=== PATIENT | female | born 1960 | race Caucasian/White ===

== ENCOUNTER 2023-12-10 12:55 | Inpatient (IN) | payer MEDICARE, SELFPAY ==
[2023-12-10] VITALS (7 sets, daily range): BP systolic 104–158; BP diastolic 43–113; PULSE 90–116; RESP 17–22; TEMP 36.7–36.9; O2SAT 94–98; BMI 23.0; BMI 24.1
--- NOTE | 2023-12-10 13:08 | XR_ITS ---
PROCEDURE INFORMATION: Exam: XR Chest Exam date and time: 12/10/2023 1:11 PM Age: 63 years old Clinical indication: Patient HX: Patient says she has a really bad cough. ; Additional info: SOA TECHNIQUE: Imaging protocol: Radiologic exam of the chest. Views: 1 view. COMPARISON: No relevant prior studies available. FINDINGS: Lungs: Opacities in both bases may represent atelectasis or pneumonia.. Hyperexpanded lung landry consistent with COPD Pleural spaces: Unremarkable. No pleural effusion. No pneumothorax. Heart/Mediastinum: Unremarkable. No cardiomegaly. Bones/joints: Unremarkable. IMPRESSION: Opacities in both bases may represent atelectasis or pneumonia..
--- NOTE | 2023-12-10 13:12 | ED_ITS ---
Discharge Plan Disposition Patient Disposition: Admitted Clinical Impressions Clinical Impression: Sepsis, Pneumonia, Acute kidney injury, Acute hyperkalemia Discharge ED Provider: Sigrid Rinaldi General Adult HPI General Chief complaint: Shortness of Breath/Dyspnea Stated complaint: Vomiting blood,cough,SOA Time Seen by Provider: 12/10/23 13:06 Mode of Arrival: Ambulatory Source of Information: Patient Limitations: No Limitations Description of Symptoms (Recalled from ER Triage Doc. by RN): shortness of breath History of Present Illness HPI narrative: This 63-year-old female who according to her daughter never goes to the doctor and therefore has no known medical problems but recently quit smoking presents to the ER with concerns of cough for the last 2 weeks. It is a productive cough, often producing green-colored sputum. Patient has also had some episodes of posttussive emesis. She states today she had a small amount of blood- streaked sputum which prompted her to come to the ER. She states she feels like she has had fevers but no documented temperature at home. She has not taken any medications for her symptoms. Patient also only has 1 kidney and her daughter reports patient is not making much urine. Patient does endorse occasional dysuria. She has not had any diarrhea, patient does complain of anterior chest pain and states her ribs are sore from coughing. Allergy to penicillin, Benadryl. Related Data Allergies Allergy/AdvReac Type Severity Reaction Status Date / Time diphenhydramine Allergy Verified 12/10/23 13:06 [From Benadryl] Penicillins Allergy Verified 12/10/23 13:06 [facility] Disclaimer: The information contained in this section may have been updated after the patient was seen, as this information can be updated by other users. Medical History (Updated 12/10/23 @ 16:19 by Sigrid Rinaldi MD) Solitary kidney Social History Smoking Status: Former smoker alcohol intake: never current occupational status: other Travel in the last 8 weeks: None ROS Obtained: Yes All systems reviewed & no additional complaints except as documented Constitutional Constitutional: Denies chills, Reports fever(s), Denies headache(s) and Denies weakness Eyes Eyes: Denies change in vision ENT Ears, Nose, Mouth, and Throat: Denies dizziness, Denies headache(s), Denies nasal congestion and Denies sore throat Cardiovascular Cardiovascular: Reports chest pain, Denies dyspnea and Denies leg edema Respiratory Respiratory: Reports cough, Denies dyspnea, Reports pain with cough and Reports cough with sputum production Gastrointestinal Gastrointestingal: Reports vomiting (Posttussive); Denies constipation, diarrhea or nausea Genitourinary Female Genitourinary: Denies dysuria Musculoskeletal Musculoskeletal: Denies arthralgias, Denies myalgias, Denies numbness and Denies tingling Integumentary/Breasts Skin/Breast: Denies change in pigmentation Neurologic Neurologic: Denies dizziness, Denies headache(s), Denies numbness, Denies tingling and Denies weakness Physical Exam General General appearance: alert and in no apparent distress Head Head exam: atraumatic and normocephalic Eye Eye exam: Present PERRL and EOMI ENT ENT exam: Present mucous membranes moist Neck Neck exam: Present normal inspection and full ROM Chest Chest inspection: Present symmetric chest wall rise Respiratory Respiratory exam: Present wheezes and other (Severely diminished breath sounds throughout with faint wheezing, prolonged expiratory phase, productive cough that interrupts most of her breathing); Absent respiratory distress or stridor Cardiovascular Cardiovascular exam: Present normal rhythm and tachycardia Abdominal Exam Abdominal exam: Present soft; Absent distention, tenderness, guarding or rebound Extremities Exam Extremities exam: Present full ROM Neurological Exam Neurological exam: Present alert, oriented X3 and CN II-XII intact; Absent motor sensory deficit Psychiatric Psychiatric exam: Present normal affect and normal mood Skin Skin exam: Present warm and dry Medical Decision Making Jas Inquiry Pt receiving controlled substance: No Vital Signs: 12/10/23 13:00 12/10/23 13:05 12/10/23 15:12 Temperature 98.2 F 98.0 F Temperature Source Oral Pulse Rate 111 H 103 H Pulse Rate [Left Radial] 116 H Respiratory Rate 22 22 20 Blood Pressure 134/81 134/81 Blood Pressure [Right Arm] 158/113 H Blood Pressure Mean 98 Blood Pressure Mean [Right Arm] 128 02 Sat by Pulse Oximetry 94 L 94 L Oxygen Delivery Method Room Air Room Air 12/10/23 15:00 Temperature Temperature Source Pulse Rate Pulse Rate [Left Radial] Respiratory Rate Blood Pressure Blood Pressure [Right Arm] Blood Pressure Mean Blood Pressure Mean [Right Arm] 02 Sat by Pulse Oximetry Oxygen Delivery Method Room Air Lab Data Lab Results 12/10/23 13:02: WBC 15.9 H, RBC 3.27 L, Hgb 10.4 L, Hct 31.0 L, MCV 94.8, MCH 31.8 H, MCHC 33.6, RDW 14.1, Plt Count 485 H, MPV 8.4, Neut % (Auto) 75.3, Lymph % (Auto) 20.0, [place] % (Auto) 3.5, Eos % (Auto) 0.9, Baso % (Auto) 0.4, Neut # (Auto) 12.0 H, Lymph # (Auto) 3.2, [place] # (Auto) 0.6, Eos # (Auto) 0.1, Baso # (Auto) 0.1, Total Counted 100, Neutrophils % (Manual) 59, Lymphocytes % (Manual) 37, Monocytes % (Manual) 4, Platelet Estimate Slight increase, RBC Morphology Normal, Sodium 135 L, Potassium 5.9 H, Chloride 109 H, Carbon Dioxide 15 L, Anion Gap 16.9 H, BUN 54 H, Creatinine 3.70 H, Estimated Creat Clear 14, Estimated GFR 12 L*, Est GFR ( Amer) 15 L*, Glucose 117 H, Hemoglobin A1c 5.3, Calcium 9.9, Total Bilirubin 0.4, AST 26, ALT 19, Alkaline Phosphatase 149 H, Troponin I < 0.01, Total Protein 8.6 H, Albumin 3.9, Globulin 4.7 H, Albumin/Globulin Ratio 0.8 L, TSH 0.30 L 12/10/23 13:04: Lactate 1.0 12/10/23 13:10: Urine Color Yellow, Urine Appearance Sl cloudy, Urine pH 6.0, Ur Specific [place] 1.025, Urine Protein 3+, Urine Glucose (UA) Negative, Urine Ketones Negative, Urine Blood 1+, Urine Nitrate Negative, Urine Bilirubin Negative, Urine Urobilinogen 0.2, Ur Leukocyte Esterase Negative, Urine RBC None, Urine WBC 3-5, Ur Squamous Epith Cells 5-10, Urine Bacteria 2+ 12/10/23 13:20: SARS-CoV-2 (PCR) Not detected, Influenza A Untype (PCR) Not detected, Influenza Type B (PCR) Not detected 12/10/23 13:02 12/10/23 13:02 Orders (Tests/Meds): ED MEDICATIONS Generic Name Dose Route Start Last Admin Trade Name Madelyn PRN Reason Stop Dose Admin Acetaminophen 650 mg 12/10/23 14:33 Acetaminophen 325mg Tab PO 01/09/24 14:32 Q4HP PRN Fever or Mild Pain (1-3) Albuterol/Ipratropium 3 ml 12/10/23 18:00 Ipratropium/Albuterol 3 Ml Neb 01/09/24 17:59 Q6RT KATHY Heparin Sodium (Porcine) 5,000 unit 12/10/23 14:45 12/10/23 14:43 Heparin Sodium 5,000 Unit/Ml Vial SQ 01/09/24 14:44 5,000 unit Q8H KATHY Administration Vancomycin HCl 1,000 mg/ 250 mls @ 125 mls/hr 12/10/23 14:15 12/10/23 15:30 Sodium Chloride IV 12/20/23 14:14 125 mls/hr Q72H KATHY Administration Cefepime HCl 1 gm/ Sodium 50 mls @ 100 mls/hr 12/10/23 23:00 Chloride IV 12/20/23 22:59 Q12H KATHY Nicotine 21 mg 12/10/23 14:33 Nicotine 21mg/24hr Patch TD 01/09/24 14:32 DAILYP PRN Nicotine Cravings Discontinued Medications Generic Name Dose Route Start Last Admin Trade Name Madelyn PRN Reason Stop Dose Admin Albuterol/Ipratropium 9 ml 12/10/23 13:10 12/10/23 13:21 Ipratropium/Albuterol 3 Ml Neb 12/10/23 13:11 9 ml ONCE ONE Administration Lactated Ringer's 1,000 mls @ 999 mls/hr 12/10/23 13:11 12/10/23 13:20 Lactated Ringer's 1000 Ml Bag IV 12/10/23 14:11 999 mls/hr .Q1H1M ONE Administration Lactated Ringer's 1,000 mls @ 999 mls/hr 12/10/23 13:56 12/10/23 15:00 Lactated Ringer's 1000 Ml Bag IV 12/10/23 14:56 Not Given .Q1H1M ONE Metronidazole 500 mg in 100 mls @ 100 mls/hr 12/10/23 13:56 12/10/23 14:07 Flagyl 500mg/100ml Ivpb IV 12/10/23 14:55 100 mls/hr ONCE ONE Administration Cefepime HCl 2 gm/ Sodium 100 mls @ 200 mls/hr 12/10/23 13:58 12/10/23 14:06 Chloride IV 12/10/23 14:27 200 mls/hr ONCE ONE Administration Miscellaneous 1 each 12/10/23 14:00 Vancomycin Consult Request NOTAPPLIC 01/09/24 13:59 [facility] Ondansetron HCl 4 mg 12/10/23 13:11 12/10/23 13:20 Ondansetron 4mg/2ml Vial IV 12/10/23 13:12 4 mg ONCE ONE Administration Oxycodone HCl 5 mg 12/10/23 14:38 12/10/23 14:42 Oxycodone 5mg Immediate Release Tablet PO 12/10/23 14:39 5 mg ONCE ONE Administration ORDERS Category Date Time Status XR chest portable Stat Exams 12/10/23 13:08 Completed Complete Blood Count Auto Diff AMLAB Lab 12/11/23 06:00 Ordered Complete Blood Count Auto Diff Stat Lab 12/10/23 13:02 Completed Comprehensive Metabolic Panel AMLAB Lab 12/11/23 06:00 Ordered Comprehensive Metabolic Panel Stat Lab 12/10/23 13:02 Completed Hemoglobin A1C Stat Lab 12/10/23 13:02 Completed Lactic Acid Stat Lab 12/10/23 13:04 Completed Magnesium AMLAB Lab 12/11/23 06:00 Ordered Rapid PCR Covid and Flu A/B Stat Lab 12/10/23 13:20 Completed Thyroid Stimulating Hormone Stat Lab 12/10/23 13:02 Completed Troponin I Q3H Lab 12/10/23 16:03 Received Troponin I Q3H Lab 12/10/23 19:15 Ordered Troponin I Stat Lab 12/10/23 13:02 Completed Urinalysis and Microscopic Stat Lab 12/10/23 13:10 Completed Blood Culture Stat Micro 12/10/23 14:37 Received Urine Culture Stat Micro 12/10/23 13:10 Received ECG Request Stat Y 12/10/23 13:08 Ordered ECG initial [place] Routine Y 12/10/23 13:23 Completed Medical Decision Narrative: In summary, this 63year old female presents to the emergency department today with cough, posttussive emesis, decreased urine output. On initial evaluation patient is mildly tachycardic, her tachypnea noted on triage vitals is only present after her coughing episodes and is not present when she is at rest, she is afebrile, saturating 94% on room air, exam notable for diminished breath sounds throughout with recurrent cough productive of sputum and wheezing throughout. Differential diagnosis includes but is not limited to COPD, emphysema, pneumonia, viral syndrome, electrolyte abnormality, kidney failure, urinary tract infection, dehydration. Based on these concerns, I ordered basic labs, chest x-ray, I had also considered fluid overload or underlying cardiac cause of patient's cough and shortness of breath so she is receiving a cardiac workup. I considered PE however patient is not hypotensive or hypoxic and has other reasons for her shortness of breath based on exam and cough. ECG personally interpreted demonstrates Sinus rhythm, rate 101, normal intervals, normal axis, no STEMI. Patient received DuoNeb and IV fluids for treatment. Labs personally reviewed demonstrate leukocytosis with WBC 15.9, this plus patient's tachycardia with suspected infectious source of the lungs meet sepsis criteria so I ordered broad-spectrum antibiotics including vancomycin, cefepime, Flagyl given patient's penicillin allergy. Patient did not receive a full sepsis bolus because she has new findings of acute renal failure and has been producing minimal urine. I am concerned that if I give her a full sepsis bolus I may fluid overload her given the history provided by daughter is concerning for renal changes proceeding the pneumonia and sepsis. She is currently rece iving 1 L IV fluids. Patient also has findings of anemia, hyperkalemia with potassium 5.9 though she does not have any hyperacute changes on EKG, BUN 54, creatinine 3.7, given history of only having 1 functional kidney this is extremely concerning. Initial troponin undetectable at less than 0.01. UA negative for signs of infection XR personally interpreted demonstrates bilateral lower lobe changes concerning for pneumonia given the patient's presenting symptoms. Radiology read for final interpretation. On reassessment patient remains stable and has had some improvement in her cough since receiving DuoNeb. I explained to her the results and she is amenable to the plan for admission. I discussed this case with Dr. Corbett including patient's findings of pneumonia, sepsis, acute renal injury with minimal urine output concerning for acute renal failure. He has accepted the patient for admission to his service for continued management. Critical Care Critical Care Time Critical Care Time: Yes Attestation: On 12/10/23, the high probability of a clinically significant, sudden or life threatening deterioration of the following system(s) (cardiac, respiratory, renal) required my full and direct attention, intervention and personal management. The time I documented below is in addition to time spent performing reported procedures but includes the following listed in this critical care notation. Total Time Total Critical Care Time: 35
--- NOTE | 2023-12-10 13:15 | PC.NURSE ---
XR AT BEDSIDE
[2023-12-10 13:16] LABS: Basophils # 0.1 K/mm3 (0-0.2); Basophils % 0.4 % (0.1-2.0); Eosinophils # 0.1 K/mm3 (0.0-0.4); Eosinophils % 0.9 % (0.1-12.0); Hemoglobin 10.4 g/dL (12.2-16.2); Lymphocytes # 3.2 K/mm3 (0.7-4.5); Mean Corpuscular HGB Conc 33.6 g/dL (31.8-35.4); Mean Corpuscular Hemoglobin 31.8 pg (27.0-31.2); Mean Corpuscular Volume 94.8 fl (81-99); Mean Platelet Volume 8.4 fl (7.4-10.4); Monocytes # 0.6 K/mm3 (0.1-1.0); Monocytes % 3.5 % (1.7-9.3); Neutrophils % 75.3 % (37.0-80.0); Platelet Count 485 K/mm3 (142-424); Red Blood Count 3.27 M/mm3 (4.20-5.40); Red Cell Distribution Width 14.1 % (11.5-17.5); White Blood Count 15.9 K/mm3 (4.8-10.8)
[2023-12-10 13:16] LABS: Microscopic, Urine URINE MICROSCOPIC (MICROSCOPIC)
[2023-12-10 13:17] LABS: Chloride 109 mmol/L (98-107); Potassium 5.9 mmoL/L (3.5-5.1); Sodium 135 mmol/L (136-145)
[2023-12-10 13:20] LABS: Appearance,Urine SL CLOUDY (Clear); Bilirubin,Urine Negative (Negative); Blood, Urine 1+ (Negative); Color,Urine YELLOW (Yellow); Glucose,Urine (UA) Negative (Negative); Ketones,Urine Negative (Negative); Leukocyte Esterase,Urine Negative (Negative); Nitrate,Urine Negative (Negative); Protein,Urine 3+ (Negative); Specific Gravity, Urine 1.025 (1.005-1.030); Urobilinogen,Urine 0.2 EU/dl (0.2)
[2023-12-10 13:20] LABS: Alanine Aminotransferase 19 U/L (12-78); Albumin Level 3.9 g/dl (3.5-5.0); Albumin/Globulin Ratio 0.8 (1.1-1.8); Alkaline Phosphatase 149 U/L (38-126); Anion Gap 16.9 mEq/L (5-15); Aspartate Amino Transferase 26 U/L (14-36); Bilirubin,Total 0.4 mg/dl (0.2-1.3); Blood Urea Nitrogen 54 mg/dl (7-17); Carbon Dioxide 15 mmol/L (22.0-30.0); Creatinine Clearance Estimated 14 mL/min (50-200); Estimated Glomerular Filt Rate 12 ml/min (>60); GFR (African American) 15 ML/MIN (>60); Globulin 4.7 g/dL (1.3-3.2); Total Protein,Serum 8.6 g/dl (6.3-8.2)
[2023-12-10] MEDS: LACTATED RINGERS 1000ML 1,000 ML 999 ML IV (13:20)
[2023-12-10] MEDS: ONDANSETRON 4MG/2ML VIAL 4 MG IV (13:20)
[2023-12-10 13:21] LABS: Coronavirus 19, PCR Not Detected (NotDetected); Influenza A, PCR Not Detected (NotDetected); Influenza B, PCR Not Detected (NotDetected)
[2023-12-10 13:21] LABS: Calcium 9.9 mg/dl (8.4-10.2); Glucose 117 mg/dl (74-100)
[2023-12-10] MEDS: IPRATROPIUM/ALBUTEROL 3 ML NEB 9 ML IH (13:21)
--- NOTE | 2023-12-10 13:23 | ECG_ITS ---
APPROVED REPORT Exam: Resting ECG HR:101 bpm ECG Measurements Heart Rate 101 AXES MS 143 P 146 QRSd 77 QRS 76 QT 304 T 123 QTc 362 Conclusion Sinus rhythm with overall low voltages-questionable body habitus issue? Late R wave progression ABNORMAL ECG UNCONFIRMED REPORT Electronically signed by : Chadwick Capone MD 12/12/2023 16:45:14
[2023-12-10 13:32] LABS: Bacteria,Urine 2+ /lpf
[2023-12-10 13:33] LABS: MANUAL DIFFERENTIAL MANUAL DIFFERENTIAL (MANUAL DIFF); Troponin I < 0.01 ng/ml (0.00-0.034)
[2023-12-10 13:50] LABS: Lymphocytes % 37 % (10-50); Monocytes % 4 % (2-9); Neutrophils % 59 % (42-76); Platelet Estimate Slight Increase; RBC Morphology Normal; Total Cells Counted 100
[2023-12-10] MEDS: CEFEPIME HCL 2 GM in 0.9 % SODIUM CHLORIDE 100 ML IV (14:06)
[2023-12-10] MEDS: METRONIDAZ/SOD CHL 500 MG/100 ML PIGGYBACK 100 MG IV ×2 (14:07→21:05)
--- NOTE | 2023-12-10 14:07 | P.CONPHA_ITS ---
Pharmacy Consult Date: 12/10/23 Time: 14:07 Referring provider: DR. GARCIA Reason for Consult:: VANCOMYCIN DOSING Allergies Allergy/AdvReac Type Severity Reaction Status Date / Time diphenhydramine Allergy Verified 12/10/23 13:06 [From Benadryl] Penicillins Allergy Verified 12/10/23 13:06 New Prescriptions to Start Prescriptions: Height: 1.6 m Weight: 58.967 kg Laboratory Results:: Laboratory Results - last 24 hr 12/10/23 13:02: WBC 15.9 H, RBC 3.27 L, Hgb 10.4 L, Hct 31.0 L, MCV 94.8, MCH 31.8 H, MCHC 33.6, RDW 14.1, Plt Count 485 H, MPV 8.4, Neut % (Auto) 75.3, Lymph % (Auto) 20.0, [place] % (Auto) 3.5, Eos % (Auto) 0.9, Baso % (Auto) 0.4, Neut # (Auto) 12.0 H, Lymph # (Auto) 3.2, [place] # (Auto) 0.6, Eos # (Auto) 0.1, Baso # (Auto) 0.1, Total Counted 100, Neutrophils % (Manual) 59, Lymphocytes % (Manual) 37, Monocytes % (Manual) 4, Platelet Estimate Slight increase, RBC Morphology Normal, Sodium 135 L, Potassium 5.9 H, Chloride 109 H, Carbon Dioxide 15 L, Anion Gap 16.9 H, BUN 54 H, Creatinine 3.70 H, Estimated Creat Clear 14, Estimated GFR 12 L*, Est GFR ( Amer) 15 L*, Glucose 117 H, Calcium 9.9, Total Bilirubin 0.4, AST 26, ALT 19, Alkaline Phosphatase 149 H, Troponin I < 0.01, Total Protein 8.6 H, Albumin 3.9, Globulin 4.7 H, Albumin/Globulin Ratio 0.8 L 12/10/23 13:10: Urine Color Yellow, Urine Appearance Sl cloudy, Urine pH 6.0, Ur Specific [place] 1.025, Urine Protein 3+, Urine Glucose (UA) Negative, Urine Ketones Negative, Urine Blood 1+, Urine Nitrate Negative, Urine Bilirubin Negative, Urine Urobilinogen 0.2, Ur Leukocyte Esterase Negative, Urine RBC None, Urine WBC 3-5, Ur Squamous Epith Cells 5-10, Urine Bacteria 2+ 12/10/23 13:20: SARS-CoV-2 (PCR) Not detected, Influenza A Untype (PCR) Not d etected, Influenza Type B (PCR) Not detected Assessment and Plan Assessment and plan all Dx Assessment and Plan for all problems:: Pharmacokinetic dosing service Objective: Age: 63 yo Serum creatinine: 3.7 mg/dL Height: 63.0 Inches Weight (kg): 59 Assessment: IBW (kg): 52.40 Dosing wt(kg): 59 Estimated Creatinine clearance (ml/min): 12.5 CRCL method: Cockcroft and Gault using ibw(default). Drug selected: Vancomycin Loading dose (mg): 0 Vd (liters): 47.2 (factor used: 0.8 L/kg) Dav (hr-1): 0.015 Half life (hrs): 46.21 Recommended dose: 1000 mg Interval: 72 hrs Infusion time (hrs): 2.0 Predicted peak (mcg/mL): 31.6 Predicted trough (mcg/mL): 11.06 Total body weight is being used for vancomycin dosing. Recommendations: Give Vancomycin 1000 mg q 72 hrs with an expected Cpeak of 31.6 mcg/ml and an expected Ctrough of 11.06 mcg/ml ----Vanco only - ignore for aminoglycosides----- CLvanco= 0.71 L/hr AUC 0-24 /ANGEL Data: ANGEL 0.5 mcg/mL: AUC/ANGEL: 939.0 ANGEL 1.0 mcg/mL: AUC/ANGEL: 469.5 --------- ANGEL 1.5 mcg/mL: AUC/ANGEL: 313.0 ANGEL 2.0 mcg/mL: AUC/ANGEL: 234.7
--- NOTE | 2023-12-10 14:33 | PC.NURSE ---
dry house tender notified of admission
[2023-12-10] MEDS: OXYCODONE 5MG IMMEDIATE RELEASE TABLET 5 MG PO (14:42)
[2023-12-10] MEDS: HEPARIN SODIUM 5,000 UNIT/ML VIAL 5000 UNIT SQ ×2 (14:43→22:08)
[2023-12-10 14:55] LABS: Hemoglobin A1C 5.3 % (4.0-6.0)
--- NOTE | 2023-12-10 15:01 | PC.NURSE ---
Report called to TAISHA Luevano
[2023-12-10] MEDS: VANCOMYCIN HCL 1,000 MG in 0.9 % SODIUM CHLORIDE 250 ML 125 MG IV (15:30)
--- NOTE | 2023-12-10 16:01 | EXP.HP ---
History of Present Illness *Admission Date: 12/10/23 *Reason for visit:: dyspnea *History of present illness: Ms. Ryan is a 63-year-old female with past medical history of solitary kidney and former smoker up until 3 weeks ago. Used to smoke 1-1/2 to 2 packs a day. Otherwise she never goes to the doctor and has no other known medical conditions. She presented to the ER because of worsening cough over the past 2 weeks. Has had some sick family members with both COVID and flu. Cough has been somewhat more productive over the past few days, producing green phlegm. Also had some posttussive emesis. Been more fatigued, had some blood-streaked sputum today that prompted her to come to the ER. Has subjectively felt feverish but no bernadette fever on thermometer. Denies diarrhea, confusion, syncope. Has some intermittent chest discomfort at home over the past several months that she attributes to heartburn. Still making urine but not a lot. Workup in the ER concerning for pneumonia and sepsis given tachycardia, leukocytosis, findings on chest imaging. Initiated on broad-spectrum antibiotics. Medicine consulted for admission. On evaluation after arriving to the floor, she has family at bedside. States patient appears somewhat better after getting fluids in the ER. Tolerating p.o. fluids. On room air at this time. [facility] Disclaimer: The information contained in this section may have been updated after the patient was seen, as this information can be updated by other users. Medical History (Updated 12/10/23 @ 17:31 by Suresh Corbett MD) Solitary kidney Family History (Updated 12/10/23 @ 17:29 by Suresh Corbett MD) Coronary artery disease Hyperlipidemia Heart attack Hypertension Social History (Updated 12/10/23 @ 16:19 by Sigrid Rinaldi MD) Smoking Status: Former smoker alcohol intake: never current occupational status: other Travel in the last 8 weeks: None Review of Systems Review of Systems Review of systems (narrative): 14 point review of systems performed, pertinent positives and negatives as per HPI Constitutional Constitutional: Denies headache(s) and Denies weakness ENT Ears, Nose, Mouth, and Throat: Denies dizziness and Denies headache(s) *Musculoskeletal Musculoskeletal: Denies numbness and Denies tingling *Neurologic Neurologic: Denies dizziness, Denies headache(s), Denies numbness, Denies tingling and Denies weakness Meds Home Medications and Allergies New Prescriptions to Start Prescriptions: Allergies Allergy/AdvReac Type Severity Reaction Status Date / Time diphenhydramine Allergy Verified 12/10/23 13:06 [From Benadryl] Penicillins Allergy Verified 12/10/23 13:06 Exam Data for Last 24 hours Vital signs and Labs for Last 24 Hours: Temp Pulse Resp BP Pulse Ox O2 Del Method 98.3 F 111 H 17 111/43 L 98 Room Air 12/10/23 15:40 12/10/23 15:40 12/10/23 15:40 12/10/23 15:40 12/10/23 15:40 12/10/23 15:40 Laboratory Results - last 24 hr 12/10/23 13:02: WBC 15.9 H, RBC 3.27 L, Hgb 10.4 L, Hct 31.0 L, MCV 94.8, MCH 31.8 H, MCHC 33.6, RDW 14.1, Plt Count 485 H, MPV 8.4, Neut % (Auto) 75.3, Lymph % (Auto) 20.0, [place] % (Auto) 3.5, Eos % (Auto) 0.9, Baso % (Auto) 0.4, Neut # (Auto) 12.0 H, Lymph # (Auto) 3.2, [place] # (Auto) 0.6, Eos # (Auto) 0.1, Baso # (Auto) 0.1, Total Counted 100, Neutrophils % (Manual) 59, Lymphocytes % (Manual) 37, Monocytes % (Manual) 4, Platelet Estimate Slight increase, RBC Morphology Normal, Sodium 135 L, Potassium 5.9 H, Chloride 109 H, Carbon Dioxide 15 L, Anion Gap 16.9 H, BUN 54 H, Creatinine 3.70 H, Estimated Creat Clear 14, Estimated GFR 12 L*, Est GFR ( Amer) 15 L*, Glucose 117 H, Hemoglobin A1c 5.3, Calcium 9.9, Total Bilirubin 0.4, AST 26, ALT 19, Alkaline Phosphatase 149 H, Troponin I < 0.01, Total Protein 8.6 H, Albumin 3.9, Globulin 4.7 H, Albumin/Globulin Ratio 0.8 L, TSH 0.30 L 12/10/23 13:04: Lactate 1.0 12/10/23 13:10: Urine Color Yellow, Urine Appearance Sl cloudy, Urine pH 6.0, Ur Specific [place] 1.025, Urine Protein 3+, Urine Glucose (UA) Negative, Urine Ketones Negative, Urine Blood 1+, Urine Nitrate Negative, Urine Bilirubin Negative, Urine Urobilinogen 0.2, Ur Leukocyte Esterase Negative, Urine RBC None, Urine WBC 3-5, Ur Squamous Epith Cells 5-10, Urine Bacteria 2+ 12/10/23 13:20: SARS-CoV-2 (PCR) Not detected, Influenza A Untype (PCR) Not detected, Influenza Type B (PCR) Not detected I & O for Last 24 hours: Intake & Output 12/07/23 12/08/23 12/09/23 12/10/23 23:59 23:59 23:59 23:59 Output Total 0 / 0 Balance 0 / 0 Weight 61.859 kg Constitutional Constitutional: no acute distress *Routine HEENT Exam Head: Present normocephalic Eye: Present EOMI and PERRL ENT: Present mucous membranes moist Comments: Edentulous *Routine Neck Exam Neck: Present supple; Absent lymphadenopathy *Routine Respiratory Exam Respiratory: Present prolonged expiratory phase, wheezes (Minimal expiratory) and crackles (In bases); Absent rhonchi *Routine Cardiovascular Exam Cardiovascular: Present tachycardia *Routine Abdominal Exam Abdominal: Present soft and normoactive bowel sounds; Absent tenderness *Routine Rectal Exam Rectal:: deferred *Routine Genitalia Exam Genitalia:: deferred *Routine Extremities Exam Extremities: Absent cyanosis, clubbing or edema *Routine Skin Exam Skin: Present warm; Absent rash *Routine Neurological Exam Neurological: Present alert, oriented X3 and moving all extremities; Absent altered mental status Assessment and Plan *Assessment and plan (1) Sepsis: Status: Acute Qualifiers: Sepsis type: sepsis due to unspecified organism Sepsis acute organ dysfunction status: with acute organ dysfunction Severe sepsis acute organ dysfunction type: acute renal failure Category: Medical Code(s): A41.9 - Sepsis, unspecified organism (2) Pneumonia: Status: Acute Qualifiers: Laterality: bilateral Lung location: lower lobe of lung Category: Medical Code(s): J18.9 - Pneumonia, unspecified organism (3) Acute kidney injury: Status: Acute Category: Medical Code(s): N17.9 - Acute kidney failure, unspecified (4) Acute hyperkalemia: Status: Acute Category: Medical Code(s): E87.5 - Hyperkalemia (5) Tobacco use disorder: Status: Acute Category: Medical Code(s): F17.200 - Nicotine dependence, unspecified, uncomplicated (6) GERD (gastroesophageal reflux disease): Status: Acute Category: Medical Code(s): K21.9 - Gastro-esophageal reflux disease without esophagitis Plan 63-year-old female with solitary kidney and tobacco use history. Presents with increased shortness of breath, concern for pneumonia and sepsis. Discussed case with ER, request admission for further management including IV antibiotics, evaluation of kidney function, and high risk of decompensation. Medicine agreed to admit. Is received vancomycin, cefepime, Flagyl in the ER. Renally dosing medications. Problems addressed as follows: Sepsis secondary to pneumonia with ETHEL -Tachycardic, leukocytosis of 15, pneumonia on chest imaging. Personally reviewed with bilateral lower lobe opacification. -Continue vancomycin, cefepime, Flagyl, monitor for toxicity. Renally dosing meds. -Blood cultures and sputum culture pending - White cell count 15.9 creatinine 3.7, BUN 54, potassium 5.9. -Troponin less than 0.01. TSH and A1c screened, both normal. At 0.3 and 5.3 respectively. -BNP to evaluate for CHF component. Echo ordered for the morning. Given her complaint of orthopnea/cough with lying down -DuoNebs as needed every 6 hours. Supplemental oxygen if needed, goal sats greater 90%. Currently greater 90% on room air Solitary kidney: Suspected CKD -Unknown baseline creatinine. Renal duplex in the morning to evaluate renal parenchyma. -Repeat BMP this evening to evaluate improvement in creatinine. Repeat CMP, CBC, magnesium ordered for the morning. -Of note, urine negative for nitrate and leuk esterase. Does have 3+ protein. Likely related to CKD component Tobacco use disorder: Stop smoking 3 weeks ago. No desire to continue or pick cigarettes back up. Offered nicotine patch, available if she needs. Declined at this time. Full code Regular diet Heparin 5000 units SQ twice daily
[2023-12-10 16:35] LABS: Troponin I < 0.01 ng/ml (0.00-0.034)
[2023-12-10 17:19] LABS: NT Pro Brain Natriuretic Pep. 884 pg/mL (0-125)
[2023-12-10] MEDS: ACETAMINOPHEN 325MG TAB 650 MG PO (19:39)
[2023-12-10 19:46] LABS: Troponin I < 0.01 ng/ml (0.00-0.034)
[2023-12-10 20:11] LABS: Chloride 110 mmol/L (98-107); Sodium 133 mmol/L (136-145)
[2023-12-10] MEDS: IPRATROPIUM/ALBUTEROL 3 ML NEB IH ×2 (20:11→23:31)
[2023-12-10] MEDS: PANTOPRAZOLE 40MG VIAL 40 MG IV (20:13)
[2023-12-10] MEDS: SODIUM CHLORIDE 0.9% 10ML VIAL 10 ML IV (20:13)
[2023-12-10 20:14] LABS: Blood Urea Nitrogen 51 mg/dl (7-17); Calcium 8.7 mg/dl (8.4-10.2); Carbon Dioxide 14 mmol/L (22.0-30.0); Creatinine Clearance Estimated 17 mL/min (50-200); Estimated Glomerular Filt Rate 14 ml/min (>60); GFR (African American) 17 ML/MIN (>60); Glucose 142 mg/dl (74-100)
[2023-12-10] MEDS: CEFEPIME HCL 1 GM in 0.9 % SODIUM CHLORIDE 50 ML IV (22:08)
[2023-12-11 04:00] VITALS: BP 110/67; PULSE 58; RESP 18; TEMP 36.9; O2SAT 99; BMI 25.2
--- NOTE | 2023-12-11 04:45 | PC.NURSE ---
Pt is alert and oriented x4, pt has C/O pain once this shift and was treated per MAR. Pt has tolerated antibiotic therapy well. Pt denies pain and needs at this time.
[2023-12-11] MEDS: METRONIDAZ/SOD CHL 500 MG/100 ML PIGGYBACK 100 MG IV ×2 (05:04→12:20)
[2023-12-11] MEDS: HEPARIN SODIUM 5,000 UNIT/ML VIAL 5000 UNIT SQ (05:45)
[2023-12-11 05:47] VITALS: PULSE 85; PULSE 89
[2023-12-11] MEDS: IPRATROPIUM/ALBUTEROL 3 ML NEB IH ×2 (05:47→12:39)
[2023-12-11 06:28] LABS: Eosinophils # 0.1 K/mm3 (0.0-0.4); Eosinophils % 0.7 % (0.1-12.0); Lymphocytes # 2.4 K/mm3 (0.7-4.5); Monocytes # 0.5 K/mm3 (0.1-1.0)
[2023-12-11 06:42] LABS: Alanine Aminotransferase 19 U/L (12-78); Albumin Level 3.1 g/dl (3.5-5.0); Albumin/Globulin Ratio 0.8 (1.1-1.8); Alkaline Phosphatase 106 U/L (38-126); Anion Gap 16.1 mEq/L (5-15); Aspartate Amino Transferase 23 U/L (14-36); Bilirubin,Total 0.2 mg/dl (0.2-1.3); Blood Urea Nitrogen 49 mg/dl (7-17); Calcium 9.1 mg/dl (8.4-10.2); Carbon Dioxide 13 mmol/L (22.0-30.0); Chloride 112 mmol/L (98-107); Creatinine Clearance Estimated 16 mL/min (50-200); Estimated Glomerular Filt Rate 13 ml/min (>60); GFR (African American) 16 ML/MIN (>60); Globulin 3.7 g/dL (1.3-3.2); Glucose 102 mg/dl (74-100); Magnesium 1.6 mg/dl (1.6-2.3); Potassium 5.1 mmoL/L (3.5-5.1); Sodium 136 mmol/L (136-145); Total Protein,Serum 6.8 g/dl (6.3-8.2)
[2023-12-11 06:51] LABS: Basophils # 0.1 K/mm3 (0-0.2); Basophils % 0.4 % (0.1-2.0); Hematocrit 24.5 % (37.0-47.0); Lymphocytes % 20.3 % (10-50); Mean Corpuscular HGB Conc 32.3 g/dL (31.8-35.4); Mean Platelet Volume 9.2 fl (7.4-10.4); Neutrophils # 8.9 K/mm3 (1.8-7.8); Neutrophils % 74.5 % (37.0-80.0); Platelet Count 387 K/mm3 (142-424); Red Blood Count 2.55 M/mm3 (4.20-5.40); Red Cell Distribution Width 14.3 % (11.5-17.5); White Blood Count 11.9 K/mm3 (4.8-10.8)
[2023-12-11 06:57] LABS: Hemoglobin 7.9 g/dL (12.2-16.2)
[2023-12-11 07:38] VITALS: BP 124/70; PULSE 101; RESP 17; TEMP 37; O2SAT 100
--- NOTE | 2023-12-11 07:58 | US_ITS ---
FINAL REPORT TECHNIQUE: Ultrasound images of the kidneys and bladder were obtained. CLINICAL HISTORY: eval kidney presence and appearance FINDINGS: The right kidney measures 12 cm in length. The left kidney measures 9 cm in length. Kidneys are hyperechoic bilaterally suggestive of advanced medical renal disease. There is moderate generalized renal atrophy. Multiple right renal cysts are seen, some of which are complex measuring up to 2.5 cm. There is a possible 2 cm solid mass in the left kidney which is isoechoic to the adjacent parenchyma. There is no hydronephrosis. IMPRESSION: Medical renal disease with atrophy. Possible solid left renal mass. Recommend MRI or CT with contrast patient is if patient is able to receive contrast. Reviewed, Interpreted and Dictated by Caroline White MD Transcribed by Slime Mitchell Authenticated and . [facility]
[2023-12-11 11:06] VITALS: BP 98/63; PULSE 88; RESP 16; TEMP 37.1; O2SAT 95
[2023-12-11] MEDS: CEFEPIME HCL 1 GM in 0.9 % SODIUM CHLORIDE 50 ML IV (11:06)
--- NOTE | 2023-12-11 12:30 | P.DS_ITS ---
General Admission date:: 12/10/23 Discharge date: 12/11/23 HPI HPI HPI: Ms. Ryan is a 63-year-old female with past medical history of solitary kidney and former smoker up until 3 weeks ago. Used to smoke 1-1/2 to 2 packs a day. Otherwise she never goes to the doctor and has no other known medical conditions. She presented to the ER because of worsening cough over the past 2 weeks. Has had some sick family members with both COVID and flu. Cough has been somewhat more productive over the past few days, producing green phlegm. Also had some posttussive emesis. Been more fatigued, had some blood-streaked sputum today that prompted her to come to the ER. Has subjectively felt feverish but no bernadette fever on thermometer. Denies diarrhea, confusion, syncope. Has some intermittent chest discomfort at home over the past several months that she attributes to heartburn. Still making urine but not a lot. Workup in the ER concerning for pneumonia and sepsis given tachycardia, leukocytosis, findings on chest imaging. Initiated on broad-spectrum antibiotics. Medicine consulted for admission. On evaluation after arriving to the floor, she has family at bedside. States patient appears somewhat better after getting fluids in the ER. Tolerating p.o. fluids. On room air at this time. Hospital Course Hospital Course Hospital Course: 63-year-old female with solitary kidney and tobacco use history. Presents with increased shortness of breath, concern for pneumonia and sepsis. Discussed case with ER, request admission for further management including IV antibiotics, evaluation of kidney function, and high risk of decompensation. Medicine agreed to admit. Initiated on broad-spectrum antibiotics. Clinically patient was better by the time she reached the floor after IV fluids. Given clinical stability, findings as below, stable for discharge home. Problems addressed as follows: Sepsis secondary to pneumonia with suspected ETHEL -Tachycardic, leukocytosis of 15, pneumonia on chest imaging. Personally reviewed with bilateral lower lobe opacification. Patient was initiated on br oad-spectrum antibiotics with vancomycin, cefepime, Flagyl, monitor for toxicity. Cultures obtained on admission. White cell count was elevated 15.9, improved to 11.9. Patient has been afebrile, on room air. In light of previous infection with viral illness and sick contacts at home, suspect her condition is a secondary condition. Will transition to p.o. cefdinir to complete 5 days total of antibiotics for pneumonia. TSH and A1c were obtained for screening, both normal. BNP was marginally elevated. Echo was obtained that appears to show preserved EF on preliminary results. No oxygen requirement during admission. Stable for discharge home to complete antibiotic Suspected COPD: Initiate Advair. No wheezing during admission on exam. Patient reported Solitary kidney Suspected CKD -Unknown baseline creatinine, patient reports she has seen providers in [place] years ago who stated that she had 20 to 40% function. Renal duplex obtained showing the following: FINDINGS: The right kidney measures 12 cm in length. The left kidney measures 9 cm in length. Kidneys are hyperechoic bilaterally suggestive of advanced medical renal disease. There is moderate generalized renal atrophy. Multiple right renal cysts are seen, some of which are complex measuring up to 2.5 cm. There is a possible 2 cm solid mass in the left kidney which is isoechoic to the adjacent parenchyma. There is no hydronephrosis. IMPRESSION: Medical renal disease with atrophy. Possible solid left renal mass. Recommend MRI or CT with contrast patient is if patient is able to receive contrast. Creatinine has been stable at approximately 3.5 during hospitalization. BUN 48- 50. Suspect this is her baseline function. Lower concern for ETHEL. Patient will need follow-up with urology as an outpatient for further evaluation and further imaging. Will defer referral and imaging to PCP. Patient will be set up with new PCP later this week for close outpatient monitoring and follow-up. Of note, urine negative for nitrate and leuk esterase. Does have 3+ protein. Likely related to CKD component. Also noted to have anemia and metabolic acidosis. Likely secondary to chronic kidney disease. Initiating on iron supplementation and oral bicarb. Needs repeat BMP and CBC at follow-up with PCP Tobacco use disorder: Stop smoking 3 weeks ago. No desire to continue or pick cigarettes back up. Offered nicotine patch, available if she needs. Declined at this time. Spent 30 minutes in discharge counseling, documentation, chart review, and direct care with patient. Exam Data for Last 24 hours Vital signs and Labs for Last 24 Hours: Temp Pulse Resp BP Pulse Ox O2 Del Method 98.7 F 88 16 98/63 L 95 Room Air 12/11/23 11:06 12/11/23 11:06 12/11/23 11:06 12/11/23 11:06 12/11/23 11:06 12/11/23 11:06 Laboratory Results - last 24 hr 12/10/23 13:02: WBC 15.9 H, RBC 3.27 L, Hgb 10.4 L, Hct 31.0 L, MCV 94.8, MCH 3 1.8 H, MCHC 33.6, RDW 14.1, Plt Count 485 H, MPV 8.4, Neut % (Auto) 75.3, Lymph % (Auto) 20.0, Barton % (Auto) 3.5, Eos % (Auto) 0.9, Baso % (Auto) 0.4, Neut # (Auto) 12.0 H, Lymph # (Auto) 3.2, Barton # (Auto) 0.6, Eos # (Auto) 0.1, Baso # (Auto) 0.1, Total Counted 100, Neutrophils % (Manual) 59, Lymphocytes % (Manual) 37, Monocytes % (Manual) 4, Platelet Estimate Slight increase, RBC Morphology Normal, Sodium 135 L, Potassium 5.9 H, Chloride 109 H, Carbon Dioxide 15 L, Anion Gap 16.9 H, BUN 54 H, Creatinine 3.70 H, Estimated Creat Clear 14, Estimated GFR 12 L*, Est GFR ( Amer) 15 L*, Glucose 117 H, Hemoglobin A1c 5.3, Calcium 9.9, Total Bilirubin 0.4, AST 26, ALT 19, Alkaline Phosphatase 149 H, Troponin I < 0.01, Total Protein 8.6 H, Albumin 3.9, Globulin 4.7 H, Albumin/Globulin Ratio 0.8 L, TSH 0.30 L 12/10/23 13:04: Lactate 1.0 12/10/23 13:10: Urine Color Yellow, Urine Appearance Sl cloudy, Urine pH 6.0, Ur Specific [place] 1.025, Urine Protein 3+, Urine Glucose (UA) Negative, Urine Ketones Negative, Urine Blood 1+, Urine Nitrate Negative, Urine Bilirubin Negative, Urine Urobilinogen 0.2, Ur Leukocyte Esterase Negative, Urine RBC None, Urine WBC 3-5, Ur Squamous Epith Cells 5-10, Urine Bacteria 2+ 12/10/23 13:20: SARS-CoV-2 (PCR) Not detected, Influenza A Untype (PCR) Not detected, Influenza Type B (PCR) Not detected 12/10/23 16:03: Troponin I < 0.01, NT-Pro-B Natriuret Pep 884 H 12/10/23 19:15: Sodium 133 L, Potassium 5.0, Chloride 110 H, Carbon Dioxide 14 L , Anion Gap 14.0, BUN 51 H, Creatinine 3.30 H, Estimated Creat Clear 17, Estimated GFR 14 L*, Est GFR ( Amer) 17 L*, Glucose 142 H D, Calcium 8.7, Troponin I < 0.01 12/11/23 05:29: WBC 11.9 H D, RBC 2.55 L, Hgb 7.9 L D, Hct 24.5 L, MCV 96.0, MCH 31.0, MCHC 32.3, RDW 14.3, Plt Count 387, MPV 9.2, Neut % (Auto) 74.5, Lymph % (Auto) 20.3, Barton % (Auto) 4.0, Eos % (Auto) 0.7, Baso % (Auto) 0.4, Neut # (Auto) 8.9 H, Lymph # (Auto) 2.4, Barton # (Auto) 0.5, Eos # (Auto) 0.1, Baso # (Auto) 0.1, Sodium 136, Potassium 5.1, Chloride 112 H, Carbon Dioxide 13 L, Anion Gap 16.1 H, BUN 49 H, Creatinine 3.50 H, Estimated Creat Clear 16, Estimated GFR 13 L*, Est GFR ( Amer) 16 L*, Glucose 102 H D, Calcium 9.1, Magnesium 1.6, Total Bilirubin 0.2, AST 23, ALT 19, Alkaline Phosphatase 106, Total Protein 6.8, Albumin 3.1 L D, Globulin 3.7 H, Albumin/Globulin Ratio 0.8 L I & O for Last 24 hours: Intake & Output 12/08/23 12/09/23 12/10/23 12/11/23 23:59 23:59 23:59 23:59 Intake Total 360 / 870 1220 / 1220 Output Total 200 / 200 550 / 550 Balance 160 / 670 670 / 670 Weight 61.859 kg 64.552 kg Constitutional Constitutional: no acute distress, average body habitus and chronically ill appearing *Routine HEENT Exam Head: Present normocephalic Eye: Present EOMI and PERRL ENT: Present mucous membranes moist Comments: edentulous *Routine Neck Exam Neck: Present supple; Absent lymphadenopathy *Routine Respiratory Exam Respiratory: Present CTA bilaterally *Routine Cardiovascular Exam Cardiovascular: Present RRR *Routine Abdominal Exam Abdominal: Present soft and normoactive bowel sounds; Absent tenderness *Routine Rectal Exam Patient deferred: visual exam *Routine Exam Patient deferred: external exam *Routine Extremities Exam Extremities: Absent cyanosis, clubbing or edema *Routine Skin Exam Skin: Present warm; Absent rash *Routine Neurological Exam Neurological: Present alert, oriented X3 and moving all extremities; Absent altered mental status Results Data Completed and Pending Labs on day of discharge: Labs from last 24 hours 12/11/23 12/10/23 12/10/23 05:29 19:15 16:03 WBC 11.9 H D RBC 2.55 L Hgb 7.9 L D Hct 24.5 L MCV 96.0 MCH 31.0 MCHC 32.3 RDW 14.3 Plt Count 387 MPV 9.2 Neut % (Auto) 74.5 Lymph % (Auto) 20.3 Barton % (Auto) 4.0 Eos % (Auto) 0.7 Baso % (Auto) 0.4 Neut # (Auto) 8.9 H Lymph # (Auto) 2.4 Barton # (Auto) 0.5 Eos # (Auto) 0.1 Baso # (Auto) 0.1 Total Counted Neutrophils % (Manual) Lymphocytes % (Manual) Monocytes % (Manual) Platelet Estimate RBC Morphology Sodium 136 133 L Potassium 5.1 5.0 Chloride 112 H 110 H Carbon Dioxide 13 L 14 L Anion Gap 16.1 H 14.0 BUN 49 H 51 H Creatinine 3.50 H 3.30 H Estimated Creat Clear 16 17 Estimated GFR 13 L* 14 L* Est GFR ( Amer) 16 L* 17 L* Glucose 102 H D 142 H D Hemoglobin A1c Lactate Calcium 9.1 8.7 Magnesium 1.6 Total Bilirubin 0.2 AST 23 ALT 19 Alkaline Phosphatase 106 Troponin I < 0.01 < 0.01 NT-Pro-B Natriuret Pep 884 H Total Protein 6.8 Albumin 3.1 L D Globulin 3.7 H Albumin/Globulin Ratio 0.8 L TSH Urine Color Urine Appearance Urine pH Ur Specific [place] Urine Protein Urine Glucose (UA) Urine Ketones Urine Blood Urine Nitrate Urine Bilirubin Urine Urobilinogen Ur Leukocyte Esterase Urine RBC Urine WBC Ur Squamous Epith Cells Urine Bacteria SARS-CoV-2 (PCR) Influenza A Untype (PCR) Influenza Type B (PCR) 12/10/23 12/10/23 12/10/23 13:20 13:10 13:04 WBC RBC Hgb Hct MCV MCH MCHC RDW Plt Count MPV Neut % (Auto) Lymph % (Auto) [place] % (Auto) Eos % (Auto) Baso % (Auto) Neut # (Auto) Lymph # (Auto) [place] # (Auto) Eos # (Auto) Baso # (Auto) Total Counted Neutrophils % (Manual) Lymphocytes % (Manual) Monocytes % (Manual) Platelet Estimate RBC Morphology Sodium Potassium Chloride Carbon Dioxide Anion Gap BUN Creatinine Estimated Creat Clear Estimated GFR Est GFR ( Amer) Glucose Hemoglobin A1c Lactate 1.0 Calcium Magnesium Total Bilirubin AST ALT Alkaline Phosphatase Troponin I NT-Pro-B Natriuret Pep Total Protein Albumin Globulin Albumin/Globulin Ratio TSH Urine Color Yellow Urine Appearance Sl cloudy Urine pH 6.0 Ur Specific [place] 1.025 Urine Protein 3+ Urine Glucose (UA) Negative Urine Ketones Negative Urine Blood 1+ Urine Nitrate Negative Urine Bilirubin Negative Urine Urobilinogen 0.2 Ur Leukocyte Esterase Negative Urine RBC None Urine WBC 3-5 Ur Squamous Epith Cells 5-10 Urine Bacteria 2+ SARS-CoV-2 (PCR) Not detected Influenza A Untype (PCR) Not detected Influenza Type B (PCR) Not detected 12/10/23 13:02 WBC 15.9 H RBC 3.27 L Hgb 10.4 L Hct 31.0 L MCV 94.8 MCH 31.8 H MCHC 33.6 RDW 14.1 Plt Count 485 H MPV 8.4 Neut % (Auto) 75.3 Lymph % (Auto) 20.0 Barton % (Auto) 3.5 Eos % (Auto) 0.9 Baso % (Auto) 0.4 Neut # (Auto) 12.0 H Lymph # (Auto) 3.2 [place] # (Auto) 0.6 Eos # (Auto) 0.1 Baso # (Auto) 0.1 Total Counted 100 Neutrophils % (Manual) 59 Lymphocytes % (Manual) 37 Monocytes % (Manual) 4 Platelet Estimate Slight increase RBC Morphology Normal Sodium 135 L Potassium 5.9 H Chloride 109 H Carbon Dioxide 15 L Anion Gap 16.9 H BUN 54 H Creatinine 3.70 H Estimated Creat Clear 14 Estimated GFR 12 L* Est GFR ( Amer) 15 L* Glucose 117 H Hemoglobin A1c 5.3 Lactate Calcium 9.9 Magnesium Total Bilirubin 0.4 AST 26 ALT 19 Alkaline Phosphatase 149 H Troponin I < 0.01 NT-Pro-B Natriuret Pep Total Protein 8.6 H Albumin 3.9 Globulin 4.7 H Albumin/Globulin Ratio 0.8 L TSH 0.30 L Urine Color Urine Appearance Urine pH Ur Specific [place] Urine Protein Urine Glucose (UA) Urine Ketones Urine Blood Urine Nitrate Urine Bilirubin Urine Urobilinogen Ur Leukocyte Esterase Urine RBC Urine WBC Ur Squamous Epith Cells Urine Bacteria SARS-CoV-2 (PCR) Influenza A Untype (PCR) Influenza Type B (PCR) DS: Diagnosis Discharge Diagnosis (1) Pneumonia: Status: Acute Code(s): J18.9 - Pneumonia, unspecified organism Qualifiers: Laterality: bilateral Lung location: lower lobe of lung (2) Sepsis: Status: Resolved Code(s): A41.9 - Sepsis, unspecified organism Qualifiers: Sepsis acute organ dysfunction status: with acute organ dysfunction Sepsis type: sepsis due to unspecified organism Severe sepsis acute organ dysfunction type: acute renal failure (3) Acute kidney injury: Status: Acute Code(s): N17.9 - Acute kidney failure, unspecified (4) Acute hyperkalemia: Status: Acute Code(s): E87.5 - Hyperkalemia (5) Tobacco use disorder: Status: Acute Code(s): F17.200 - Nicotine dependence, unspecified, uncomplicated (6) GERD (gastroesophageal reflux disease): Status: Acute Code(s): K21.9 - Gastro-esophageal reflux disease without esophagitis (7) CKD (chronic kidney disease) stage 4, GFR 15-29 ml/min: Status: Acute Code(s): N18.4 - Chronic kidney disease, stage 4 (severe) (8) Anemia in chronic kidney disease (CKD): Status: Acute Code(s): N18.9 - Chronic kidney disease, unspecified; D63.1 - Anemia in chronic kidney disease Meds Home Medications and Allergies Home Medications Medication Instructions Recorded Confirmed Type cefdinir 300 mg capsule 300 mg PO BID 4 days #8 caps 12/11/23 Rx ferrous gluconate 324 mg (38 mg 324 mg PO DAILY #30 tabs 12/11/23 Rx iron) tablet fluticasone 250 mcg-salmeterol 50 1 inh inhalation BID 30 days #1 ea 12/11/23 Rx mcg/dose blistr powdr for inhalation (Advair Diskus) sodium bicarbonate 650 mg tablet 650 mg PO BID #60 tabs 12/11/23 Rx New Prescriptions to Start Prescriptions: Suresh Begum ferrous glucSuresh [place] fluticasone propion-salmeterol [Advair Diskus] Suresh Corbett sodium bicarbonate Suresh Corbett Allergies Allergy/AdvReac Type Severity Reaction Status Date / Time diphenhydramine Allergy Verified 12/10/23 13:06 [From Benadryl] Penicillins Allergy Verified 12/10/23 13:06 Discharge Plan Disposition Patient Disposition: Home, Self-Care Condition: Fair Discharge Order Discharge Orders: Discharge Order (Routine); Ordered 12/11/23 Ordered By: Suresh Corbett Follow up Plan Follow up with: Lissy Dominguez PA [Physician Solid Waste Disposal Manager] - 12/15/23 9:00 am Simon Herman MD [Staff Physician] - 01/22/24 1:00 pm Prescriptions/Medication Reconciliation: New fluticasone propion-salmeterol [Advair Diskus] 250-50 mcg/dose Blister With Device 1 inh inhalation BID 30 Days Qty: 1 0RF ferrous gluconate 324 mg (38 mg iron) tablet 324 mg PO DAILY Qty: 30 0RF sodium bicarbonate 650 mg tablet 650 mg PO BID Qty: 60 0RF cefdinir 300 mg capsule 300 mg PO BID 4 Days Qty: 8 0RF Problem Reconciliation Problems Reviewed?: Yes Patient Discharge Instructions ACTIVITY: Continue current activity DIET: continue same diet Providers Primary Care Provider: Provider,Referral Admit Provider: Suresh Corbett Attending Provider: Suresh Corbett
[2023-12-11 12:40] VITALS: PULSE 86; RESP 18
[2023-12-11] MEDS: SODIUM CHLORIDE 3% 15ML NEB 3 ML IH (12:42)
--- NOTE | 2023-12-11 17:23 | CA_ITS ---
APPROVED REPORT EXAM: Comprehensive 2D, Doppler, and color-flow Echocardiogram Teletype Clerk: Jaylene Oneill CRT Ht: 5 ft 2 in Wt: 142lbs BSA: 1.65 BP: 134/81 mmHg Indications: Shortness of Breath, Fatigue, PNEUMONIA,SEPSIS, QUIT SMOKING 3 WKS AGO 2D Dimensions LA Volume 14.70 mL LA Volume Index 8.70 mL/m2 (M/F) 16-34 M-Mode Dimensions RVDd 2.09 cm (0.9-2.6) LA Diam 2.68 cm (1.9-4.0) LVDd 4.37 cm (3.5-5.7) LVDs 2.32 cm (3.5-5.7) IVSd 1.24 cm (0.6-1.1) PWd 0.72 cm (0.6-1.1) EF (Teich) 78.60% FS 46.90% EDV (Teich) 86.30 mL TAPSE 2.51 (<1.7) ESV (Teich) 18.50 mL LV Diastology E Decel Time 413 (160-240 msec) E/A Ratio 0.90 MED A' 12.50 cm/s LAT A' 12.90 cm/s Aortic Valve MCKAYLA Index 1.82 cm2/m2 AoV Peak Jorje. 161.0 (50-130 cm/s) AO Peak GR. 10.40 mmHg AO Mean GR. 5.80 (<5 mmHg) AO VTI 26.7 (18-25 cm) MCKAYLA (VTI) 3.07 (2.5-4.5 cm2) Mitral Valve MV A Velocity 101.0 (40-130 cm/s) E/A Ratio 0.90 Tricuspid Valve TR P. Velocity 156.00 cm/s RAP Estimate 10.00 mmHg RVSP 19.70 mmHg Left Ventricle The left ventricle is normal size. The left ventricular systolic function is normal. The left ventricular ejection fraction is within the normal range. There is increased LV wall thickness. There is normal LV segmental wall motion. The left ventricular diastolic function is normal. LVEF is 60%. Right Ventricle The right ventricle is normal size. The right ventricular systolic function is normal. Atria The left atrium size is normal. The right atrium size is normal. There is no Doppler evidence of interatrial shunt. Aortic Valve The aortic valve is mildly thickened. There is no aortic valvular stenosis. No aortic regurgitation is present. Mitral Valve The mitral valve leaflets are mildly thickened. No evidence of mitral valve stenosis. Trace mitral regurgitation. Tricuspid Valve The tricuspid valve leaflets are thin and pliable. Trace tricuspid regurgitation. RVSP is normal. Pulmonic Valve The pulmonary valve is normal in structure. Trace pulmonic regurgitation. Great Vessels The aortic root is normal in size. The ascending aorta is normal in size. IVC is normal in size and collapses >50% with inspiration. Pericardium Trivial pericardial effusion noted anteriorly. There are no echo indications of tamponade. Other Information Study Quality: Fair Conclusion Normal biventricular systolic function. No significant valvular stenosis or regurgitation. Trivial pericardial effusion anteriorly. No echo indications of tamponade. Electronically signed by : Barby Patterson MD 12/13/2023 11:02:09
--- NOTE | 2023-12-13 13:45 | CARE MANAGER ---
Attempted to contact patient x2 related to hospital discharge. No VM option. TAISHA Aaron
== END 2023-12-11 14:12 | disposition home or self-care (01) | DRG 871 ==
LOC: ER 13:58 → 2ND 14:52
PROVIDERS: Admitting Provider Internal Medicine Adolescent Medicine; Emergency Provider Emergency Medicine; Visit Provider Internal Medicine Adolescent Medicine
DX: A41.9 Sepsis, unspecified organism (principal); J18.9 Pneumonia, unspecified organism; N17.9 Acute kidney failure, unspecified; N18.4 Chronic kidney disease, stage 4 (severe); E87.5 Hyperkalemia; F17.200 Nicotine dependence, unspecified, uncomplicated; K21.9 Gastro-esophageal reflux disease without esophagitis; Z87.891 Personal history of nicotine dependence; N18.9 Chronic kidney disease, unspecified; D63.1 Anemia in chronic kidney disease
CPT/HCPCS: 36415; 71045; 76770; 80048; 80053; 81001; 83036; 83605; 83735; 83880; 84443; 84484; 85007; 85025; 87040; 87070; 87086; 87205; 87636; 93005; 93306; 93976; 94640; 99291; J0692; J2405; J3370

== ENCOUNTER 2023-12-15 22:28 | Outpatient (CLI) | payer MEDICARE, SELFPAY ==
[2023-12-15 18:30] LABS: Basophils % 0.4 % (0.1-2.0); Eosinophils # 0.1 K/mm3 (0.0-0.4); Eosinophils % 0.6 % (0.1-12.0); Hemoglobin 9.3 g/dL (12.2-16.2); Lymphocytes # 1.4 K/mm3 (0.7-4.5); Lymphocytes % 14.7 % (10-50); Mean Corpuscular HGB Conc 32.2 g/dL (31.8-35.4); Mean Corpuscular Hemoglobin 32.1 pg (27.0-31.2); Mean Corpuscular Volume 99.6 fl (81-99); Mean Platelet Volume 11.7 fl (7.4-10.4); Monocytes # 0.3 K/mm3 (0.1-1.0); Monocytes % 3.2 % (1.7-9.3); Neutrophils # 7.7 K/mm3 (1.8-7.8); Platelet Count 327 K/mm3 (142-424); Red Blood Count 2.91 M/mm3 (4.20-5.40); Red Cell Distribution Width 14.7 % (11.5-17.5); White Blood Count 9.5 K/mm3 (4.8-10.8)
[2023-12-15 18:36] LABS: Alanine Aminotransferase 19 U/L (12-78); Albumin Level 3.7 g/dl (3.5-5.0); Alkaline Phosphatase 110 U/L (38-126); Anion Gap 12.9 mEq/L (5-15); Aspartate Amino Transferase 23 U/L (14-36); Bilirubin,Total 0.3 mg/dl (0.2-1.3); Blood Urea Nitrogen 37 mg/dl (7-17); Calcium 9.7 mg/dl (8.4-10.2); Carbon Dioxide 18 mmol/L (22.0-30.0); Chloride 111 mmol/L (98-107); Estimated Glomerular Filt Rate 19 ml/min (>60); GFR (African American) 23 ML/MIN (>60); Globulin 3.7 g/dL (1.3-3.2); Glucose 98 mg/dl (74-100); Potassium 5.9 mmoL/L (3.5-5.1); Sodium 136 mmol/L (136-145); Total Protein,Serum 7.4 g/dl (6.3-8.2)
[2023-12-15 18:46] LABS: Iron 41 ug/dL (37-170)
[2023-12-15 18:55] LABS: 25-OH Vitamin D, Total < 12.8 ng/mL (30-100)
[2023-12-15 19:08] LABS: Total Iron Binding Capacity 203 ug/dL (265-497)
[2023-12-15 19:23] LABS: Ferritin 420 ng/ml (11.1-264)
[2023-12-15 19:43] LABS: Folate 4.35 ng/mL; Vitamin B12 935 pg/mL (239-931)
[2023-12-15 20:04] LABS: Creatinine,Urine Random 98 mg/dL (Not Estab.)
[2023-12-15 22:43] LABS: Microalbumin/Creatinine Ratio 2166.1
== END 2023-12-15 23:59 ==
LOC: LAB.DROPOF 22:29
PROVIDERS: PCP Student in an Organized Health Care Education/Training Program; Visit Provider Student in an Organized Health Care Education/Training Program
DX: N18.4 Chronic kidney disease, stage 4 (severe) (principal); D63.1 Anemia in chronic kidney disease
CPT/HCPCS: 80053; 82043; 82306; 82570; 82607; 82728; 82746; 83540; 83550; 85025

== ENCOUNTER 2023-12-28 11:44 | Outpatient (CLI) | payer MEDICARE, SELFPAY ==
--- NOTE | 2023-12-28 14:07 | MM_ITS ---
PROCEDURE INFORMATION: Exam: Bilateral Screening 3D Mammography Exam date and time: 12/28/2023 1:55 PM Age: 63 years old Clinical indication: Screening examination TECHNIQUE: Imaging protocol: Bilateral Screening tomosynthesis and 2D mammography including computer-aided detection (CAD) when performed. COMPARISON: Screening-Bilateral Mammography 05/09/2016 10:37 AM FINDINGS: MAMMOGRAPHY: Breast composition: There are scattered areas of fibroglandular density. Mass: None. Architectural distortion: None. Calcifications: No suspicious calcifications. Asymmetric density: None. Skin thickening: None. Axillary adenopathy: None. IMPRESSION: No mammographic evidence of malignancy. Annual screening is recommended unless otherwise clinically indicated. ASSESSMENT: BI-RADS Category 1: Negative
[2023-12-29 08:15] VITALS: BMI 24.7
== END 2023-12-28 23:59 ==
PROVIDERS: PCP Student in an Organized Health Care Education/Training Program; Visit Provider Student in an Organized Health Care Education/Training Program
DX: Z12.31 Encounter for screening mammogram for malignant neoplasm of breast (principal); Z80.3 Family history of malignant neoplasm of breast; N18.4 Chronic kidney disease, stage 4 (severe); Z71.3 Dietary counseling and surveillance
CPT/HCPCS: 77063; 77067; 97802